=== PATIENT | female | born 1990 | race American Indian/Alaskan Native ===

== ENCOUNTER 2016-08-10 08:32 | Emergency (ER) | payer MEDICAID ==
[2016-08-10 09:08] LABS: Basophils % (Auto) 0.5 % (0.0-1.8); Eosinophils % (Auto) 3.9 % (0.0-4.3); Hematocrit 41.9 % (30.3-42.9); Hemoglobin 13.6 gm/dl (10.1-14.3); Mean Corpuscular HGB Conc 32 % (30-34); Mean Corpuscular Hemoglobin 29 pg (28-32); Mean Corpuscular Volume 91 fl (79-97); Platelet Count 234 K/mm3 (140-440); Red Blood Count 4.63 M/mm3 (3.65-5.03); Red Cell Distribution Width 13.2 % (13.2-15.2); White Blood Count 4.9 K/mm3 (4.5-11.0)
[2016-08-10 09:23] LABS: Alanine Aminotransferase 11 units/L (7-56); Albumin 3.6 g/dL (3.9-5); Albumin/Globulin Ratio 1.2 %; Alkaline Phosphatase 74 units/L (35-129); Anion Gap 15 mmol/L; BUN/Creatinine Ratio 17.14; Bilirubin,Total 0.7 mg/dL (0.1-1.2); Blood Urea Nitrogen 12 mg/dL (7-17); Calcium 8.6 mg/dL (8.4-10.2); Carbon Dioxide 25 mmol/L (22-30); Chloride 102.1 mmol/L (98-107); Glucose 132 mg/dL (65-100); Lipase 20 units/L (13-60); Potassium 4.1 mmol/L (3.6-5.0); Sodium 138 mmol/L (137-145); Total Protein 6.6 g/dL (6.3-8.2)
--- NOTE | 2016-08-10 10:00 | Emergency Department Report ---
Chief Complaint: Abdominal Pain Stated Complaint: ABD PAIN Time Seen by Provider: 08/10/16 09:53 - HPI History of Present Illness: Patient reports abdominal and back pain, rectal pain from straining while trying to have a bowel movement. Also, c/o hemorrhoids. LMP 07/18/2016 - ROS Review of Systems: all other systems are unremarkable except for documentation in HPI - Exam Vital Signs: Vital Signs 08/10/16 08:53 Temperature 99.1 F Pulse Rate 80 Respiratory 18 Rate Blood Pressure 152/108 O2 Sat by Pulse 100 Oximetry Physical Exam: Gen: well developed and nourished, NAD Abd: soft, nondistended, bowel sounds present, tenderness to palpation suprapubic, RLQ & LLQ, no rebound, rigid or guarding Back: full ROM, no rash, paraspinal, vertebrae, CVA rola or muscle spasm MSE screening note: Focused history and physical exam performed. Due to findings the following was ordered: laboratory studies ordered ED Medical Decision Making - Lab Data Result diagrams: 08/10/16 09:00 08/10/16 09:00 ED Disposition for MSE Condition: Stable Instructions: Abdominal Pain (ED)
[2016-08-10 10:36] LABS: Bacteria,Urine 1+ /HPF (Negative); Bilirubin,Urine NEG (Negative); Blood,Urine NEG (Negative); Ketones,Urine NEG (Negative); Leukocyte Esterase,Urine SM (Negative); Mucus,Urine 2+ /HPF; Nitrite,Urine NEG (Negative); Protein,Urine <15 mg/dL mg/dL (Negative); Urobilinogen,Urine < 2.0 mg/dL (<2.0)
--- NOTE | 2016-08-10 14:31 | Emergency Department Report ---
ED Abdominal Pain HPI - General Chief Complaint: Abdominal Pain Stated Complaint: ABD PAIN Time Seen by Provider: 08/10/16 14:29 Source: patient Mode of arrival: Ambulatory Limitations: No Limitations - History of Present Illness Initial Comments: The patient states that she noted bright red blood on her toilet paper yesterday and again today. She has history of hemorrhoids with . She was also had some vague suprapubic and lower back discomfort and perhaps some dysuria. She is a poor historian. She's had no recent fever or chills there's been no nausea vomiting diarrhea or chills. She reports no neurological change. MD Complaint: abdominal pain -: Gradual, days(s) Location: suprapubic Radiation: none (no radiation be some lower back pain) Migration to: no migration Quality: aching Consistency: intermittent, now resolved Improves With: nothing Worsens With: nothing Associated Symptoms: denies other symptoms - Related Data Previous Rx's Medication Instructions Recorded Last Taken Type Sulfamethoxazole/Trimethoprim 1 each PO QDAY #7 tablet 08/10/16 Unknown Rx [Bactrim 400-80 mg] traMADol [Ultram] 50 mg PO Q6HR PRN #10 tablet 08/10/16 Unknown Rx Allergies Allergy/AdvReac Type Severity Reaction Status Date / Time No Known Allergies Allergy Unverified 04/05/14 19:55 ED Review of Systems ROS: Stated complaint: ABD PAIN Other details as noted in HPI Constitutional: denies: chills, fever Eyes: denies: eye pain, eye discharge, vision change ENT: denies: ear pain, throat pain Respiratory: denies: cough, shortness of breath, wheezing Cardiovascular: denies: chest pain, palpitations Endocrine: no symptoms reported Gastrointestinal: abdominal pain. denies: nausea, diarrhea Genitourinary: denies: urgency, dysuria, discharge Musculoskeletal: back pain. denies: joint swelling, arthralgia Skin: denies: rash, lesions Neurological: denies: headache, weakness, paresthesias Psychiatric: denies: anxiety, depression Hematological/Lymphatic: denies: easy bleeding, easy bruising ED Past Medical Hx - Past Medical History Previous Medical History?: Yes Hx Hypertension: Yes Additional medical history: HTN with only, "Infection in digestive tract" - Surgical History Past Surgical History?: Yes Additional Surgical History: x1 - Social History Smoking Status: Current Every Day Smoker - Medications Home Medications: Home Medications Medication Instructions Recorded Confirmed Last Taken Type Sulfamethoxazole/Trimethoprim 1 each PO QDAY #7 tablet 08/10/16 Unknown Rx [Bactrim 400-80 mg] traMADol [Ultram] 50 mg PO Q6HR PRN #10 tablet 08/10/16 Unknown Rx ED Physical Exam - General Limitations: No Limitations General appearance: alert, in no apparent distress - Head Head exam: Present: atraumatic, normocephalic - Eye Eye exam: Present: normal appearance, PERRL, EOMI. Absent: scleral icterus - ENT ENT exam: Present: normal exam, mucous membranes moist - Neck Neck exam: Present: normal inspection. Absent: tenderness, meningismus - Respiratory Respiratory exam: Present: normal lung sounds bilaterally. Absent: respiratory distress - Cardiovascular Cardiovascular Exam: Present: regular rate, normal rhythm. Absent: systolic murmur, diastolic murmur, rubs, gallop - GI/Abdominal GI/Abdominal exam: Present: soft, normal bowel sounds. Absent: distended, tenderness, guarding, rebound, rigid - External exam: Present: other (external hemorrhoids nonthrombosed noted). Absent: bleeding - Extremities Exam Extremities exam: Present: normal inspection - Back Exam Back exam: Present: normal inspection. Absent: CVA tenderness (R), CVA tenderness (L) - Neurological Exam Neurological exam: Present: alert, oriented X3, CN II-XII intact. Absent: motor sensory deficit - Psychiatric Psychiatric exam: Present: normal affect, normal mood - Skin Skin exam: Present: warm, dry, intact, normal color. Absent: rash ED Course Vital Signs 08/10/16 08/10/16 08/10/16 08:53 13:34 14:00 Temperature 99.1 F Pulse Rate 80 Respiratory 18 Rate Blood Pressure 152/108 148/94 O2 Sat by Pulse 100 100 99 Oximetry 08/10/16 15:00 Temperature Pulse Rate Respiratory Rate Blood Pressure 131/78 O2 Sat by Pulse Oximetry - Reevaluation(s) Reevaluation #1: She had no significant pain or bleeding in the emergency department. 08/10/16 15:27 ED Medical Decision Making - Lab Data Result diagrams: 08/10/16 09:00 08/10/16 09:00 Laboratory Results - last 24 hr 08/10/16 08/10/16 08/10/16 09:00 09:00 09:31 WBC 4.9 RBC 4.63 Hgb 13.6 Hct 41.9 MCV 91 MCH 29 MCHC 32 RDW 13.2 Plt Count 234 Lymph % (Auto) 26.9 [place] % (Auto) 7.6 H Eos % (Auto) 3.9 Baso % (Auto) 0.5 Lymph # 1.3 [place] # 0.4 Eos # 0.2 Baso # 0.0 Seg Neutrophils % 61.1 Seg Neutrophils # 3.0 Sodium 138 Potassium 4.1 Chloride 102.1 Carbon Dioxide 25 Anion Gap 15 BUN 12 Creatinine 0.7 Estimated GFR > 60 BUN/Creatinine Ratio 17.14 Glucose 132 H Calcium 8.6 Total Bilirubin 0.7 AST 16 ALT 11 Alkaline Phosphatase 74 Total Protein 6.6 Albumin 3.6 L Albumin/Globulin Ratio 1.2 Lipase 20 HCG, Quant Urine Color Yellow Urine Turbidity Clear Urine pH 6.0 Ur Specific [place] 1.025 Urine Protein <15 mg/dl Urine Glucose (UA) Neg Urine Ketones Neg Urine Blood Neg Urine Nitrite Neg Urine Bilirubin Neg Urine Urobilinogen < 2.0 Ur Leukocyte Esterase Sm Urine WBC (Auto) 11.0 H Urine RBC (Auto) 5.0 U Epithel Cells (Auto) 10.0 Urine Bacteria (Auto) 1+ Urine Mucus 2+ 08/10/16 09:54 WBC RBC Hgb Hct MCV MCH MCHC RDW Plt Count Lymph % (Auto) [place] % (Auto) Eos % (Auto) Baso % (Auto) Lymph # [place] # Eos # Baso # Seg Neutrophils % Seg Neutrophils # Sodium Potassium Chloride Carbon Dioxide Anion Gap BUN Creatinine Estimated GFR BUN/Creatinine Ratio Glucose Calcium Total Bilirubin AST ALT Alkaline Phosphatase Total Protein Albumin Albumin/Globulin Ratio Lipase HCG, Quant < 2 Urine Color Urine Turbidity Urine pH Ur Specific [place] Urine Protein Urine Glucose (UA) Urine Ketones Urine Blood Urine Nitrite Urine Bilirubin Urine Urobilinogen Ur Leukocyte Esterase Urine WBC (Auto) Urine RBC (Auto) U Epithel Cells (Auto) Urine Bacteria (Auto) Urine Mucus Critical care attestation.: If time is entered above; I have spent that time in minutes in the direct care of this critically ill patient, excluding procedure time. ED Disposition Clinical Impression: External hemorrhoids, Rectal bleeding UTI (urinary tract infection) Qualifiers: Urinary tract infection type: site unspecified Hematuria presence: without hematuria Qualified Code(s): N39.0 - Urinary tract infection, site not specified Disposition: DISCHARGED TO HOME OR SELFCARE Is pt being admited?: No Does the pt Need Aspirin: No Condition: Stable Instructions: Abdominal Pain (ED), Hemorrhoids (ED), Urinary Tract Infection in Women (ED) Additional Instructions: Acute change or problem. Rx as directed. Hemorrhoid medicine is available over -the-counter such as Preparation H. With a primary care provider. Prescriptions: Sulfamethoxazole/Trimethoprim [Bactrim 400-80 mg] 1 each PO QDAY #7 tablet traMADol [Ultram] 50 mg PO Q6HR PRN #10 tablet PRN Reason: Pain Referrals: PRIMARY CARE, [Primary Care Provider] - 3-5 Days [facility] [Provider Group] - 3-5 Days
[2016-08-10 15:09] VITALS: BP 131/78
== END 2016-08-10 15:48 | disposition home or self-care (01) ==
LOC: ED 08:32
DX: N39.0 Urinary tract infection, site not specified (principal); K64.4 Residual hemorrhoidal skin tags; K62.5 Hemorrhage of anus and rectum; I10 Essential (primary) hypertension; F17.200 Nicotine dependence, unspecified, uncomplicated
CPT/HCPCS: 36415; 80053; 81001; 83690; 84702; 85025; 87086; 99284

== ENCOUNTER 2017-02-18 11:22 | Emergency (ER) | payer MEDICAID ==
[2017-02-18 12:11] LABS: Eosinophils % (Auto) 3.5 % (0.0-4.3); Hematocrit 41.7 % (30.3-42.9); Hemoglobin 13.9 gm/dl (10.1-14.3); Mean Corpuscular HGB Conc 33 % (30-34); Mean Corpuscular Hemoglobin 30 pg (28-32); Mean Corpuscular Volume 90 fl (79-97); Platelet Count 282 K/mm3 (140-440); Red Blood Count 4.62 M/mm3 (3.65-5.03); Red Cell Distribution Width 13.2 % (13.2-15.2)
[2017-02-18 12:22] LABS: Alanine Aminotransferase 11 units/L (7-56); Albumin 4.2 g/dL (3.9-5); Albumin/Globulin Ratio 1.3 %; Alkaline Phosphatase 61 units/L (35-129); Anion Gap 17 mmol/L; BUN/Creatinine Ratio 21.42; Blood Urea Nitrogen 15 mg/dL (7-17); Carbon Dioxide 26 mmol/L (22-30); Chloride 101.1 mmol/L (98-107); Glucose 83 mg/dL (65-100); Lipase 13 units/L (13-60); Potassium 4.2 mmol/L (3.6-5.0); Sodium 140 mmol/L (137-145); Total Protein 7.5 g/dL (6.3-8.2)
[2017-02-18 12:40] LABS: Bilirubin,Urine NEG (Negative); Blood,Urine NEG (Negative); Ketones,Urine 20 mg/dL (Negative); Leukocyte Esterase,Urine MOD (Negative); Mucus,Urine 3+ /HPF; Nitrite,Urine NEG (Negative)
[2017-02-18 15:26] VITALS: BP 152/95
--- NOTE | 2017-02-18 15:53 | Emergency Department Report ---
HPI - General Chief Complaint: Abdominal Pain Time Seen by Provider: 02/18/17 15:40 - HPI HPI: [address] 26 The patient is a 26-year-old female presenting with a chief complaint of abdominal pain. Patient states for 1 week she has had intermittent pain in the right upper quadrant is sharp and stabbing in nature. Patient does admit to nausea but denies vomiting. Patient has not noticed any change in the pain with meals. Patient does admit pleurisy but denies any recent flights or long car trips. Patient also states for the past 2-3 days she has had white vaginal discharge. Patient currently gives her pain a score of 5/10. Location: [see above] Duration: One week Quality: Sharp and stabbing Severity: 5/10 Modifying factors: [see above] Context: [see above] Mode of transportation: [not driving] ED Past Medical Hx - Past Medical History Hx Hypertension: Yes Additional medical history: HTN with only, "Infection in digestive tract" - Surgical History Additional Surgical History: x1 - Family History Family history: no significant - Social History Smoking Status: Never Smoker Substance Use Type: None (denies illicit drug use) - Medications Home Medications: Home Medications Medication Instructions Recorded Confirmed Last Taken Type Sulfamethoxazole/Trimethoprim 1 each PO QDAY #7 tablet 08/10/16 Unknown Rx [Bactrim 400-80 mg] Sulfamethoxazole/Trimethoprim 1 each PO BID #14 tablet 02/18/17 Unknown Rx [Bactrim DS TAB] traMADol [Ultram 50 MG tab] 50 mg PO Q6HR PRN #10 tablet 02/18/17 Unknown Rx ED Review of Systems ROS: Stated complaint: PAIN ON URINATION/ABD/FEELS DIZZY Other details as noted in HPI Comment: All other systems reviewed and negative Constitutional: denies: chills, fever Eyes: denies: eye pain, eye discharge, vision change ENT: denies: ear pain, throat pain Respiratory: other (pleurisy) Cardiovascular: denies: chest pain, palpitations Endocrine: no symptoms reported Gastrointestinal: abdominal pain, nausea. denies: vomiting Genitourinary: dysuria, discharge Musculoskeletal: denies: back pain, joint swelling, arthralgia Skin: denies: rash, lesions Neurological: denies: headache, weakness, paresthesias Psychiatric: denies: anxiety, depression Hematological/Lymphatic: denies: easy bleeding, easy bruising Physical Exam - Physical Exam Vital Signs: Vital Signs 02/18/17 02/18/17 11:31 15:25 Temperature 98.4 F Pulse Rate 64 99 H Respiratory 18 16 Rate Blood Pressure 158/112 Blood Pressure 152/95 [Left] O2 Sat by Pulse 100 99 Oximetry Physical Exam: GENERAL: The patient is well-developed well-nourished female lying on stretcher not appearing to be in acute distress. [] HEENT: Normocephalic. Atraumatic. Extraocular motions are intact. Patient has moist mucous membranes. NECK: Supple. Trachea midline CHEST/LUNGS: Clear to auscultation. There is no respiratory distress noted. HEART/CARDIOVASCULAR: Regular. There is no tachycardia. There is no gallop rub or murmur. ABDOMEN: Abdomen is soft, with tenderness to palpation in right upper quadrant. There is no rebound or guarding. There is no tenderness to palpation in the epigastric region. Patient has normal bowel sounds. There is no abdominal distention. SKIN: There is no rash. There is no edema. There is no diaphoresis. NEURO: The patient is awake, alert, and oriented. The patient is cooperative. The patient has normal speech MUSCULOSKELETAL: There is no evidence of acute injury. ED Course Vital Signs 02/18/17 02/18/17 11:31 15:25 Temperature 98.4 F Pulse Rate 64 99 H Respiratory 18 16 Rate Blood Pressure 158/112 Blood Pressure 152/95 [Left] O2 Sat by Pulse 100 99 Oximetry ED Medical Decision Making - Lab Data Result diagrams: 02/18/17 11:46 02/18/17 11:46 Laboratory Tests 02/18/17 02/18/17 02/18/17 11:38 11:46 11:46 WBC 3.0 L RBC 4.62 Hgb 13.9 Hct 41.7 MCV 90 MCH 30 MCHC 33 RDW 13.2 Plt Count 282 Lymph % (Auto) 41.0 H [place] % (Auto) 10.6 H Eos % (Auto) 3.5 Baso % (Auto) 1.0 Lymph # 1.2 [place] # 0.3 Eos # 0.1 Baso # 0.0 Seg Neutrophils % 43.9 Seg Neutrophils # 1.3 L D-Dimer Sodium Potassium Chloride Carbon Dioxide Anion Gap BUN Creatinine Estimated GFR BUN/Creatinine Ratio Glucose Calcium Total Bilirubin AST ALT Alkaline Phosphatase Total Protein Albumin Albumin/Globulin Ratio Lipase HCG, Qual Negative Urine Color Yellow Urine Turbidity Slightly-cloudy Urine pH 5.0 Ur Specific [place] 1.031 H Urine Protein 30 mg/dl Urine Glucose (UA) Neg Urine Ketones 20 Urine Blood Neg Urine Nitrite Neg Urine Bilirubin Neg Urine Urobilinogen 2.0 Ur Leukocyte Esterase Mod Urine WBC (Auto) 13.0 H Urine RBC (Auto) 7.0 U Epithel Cells (Auto) 30.0 H Urine Mucus 3+ 02/18/17 02/18/17 11:46 15:58 WBC RBC Hgb Hct MCV MCH MCHC RDW Plt Count Lymph % (Auto) [place] % (Auto) Eos % (Auto) Baso % (Auto) Lymph # [place] # Eos # Baso # Seg Neutrophils % Seg Neutrophils # D-Dimer < 135.00 Sodium 140 Potassium 4.2 Chloride 101.1 Carbon Dioxide 26 Anion Gap 17 BUN 15 Creatinine 0.7 Estimated GFR > 60 BUN/Creatinine Ratio 21.42 Glucose 83 Calcium 9.0 Total Bilirubin 0.70 AST 15 ALT 11 Alkaline Phosphatase 61 Total Protein 7.5 Albumin 4.2 Albumin/Globulin Ratio 1.3 Lipase 13 HCG, Qual Urine Color Urine Turbidity Urine pH Ur Specific [place] Urine Protein Urine Glucose (UA) Urine Ketones Urine Blood Urine Nitrite Urine Bilirubin Urine Urobilinogen Ur Leukocyte Esterase Urine WBC (Auto) Urine RBC (Auto) U Epithel Cells (Auto) Urine Mucus Wet prep reveals moderate Trichomonas. No yeast. Less than 20% cells - Radiology Data Radiology results: report reviewed (CT abdomen and pelvis, right upper quadrant ultrasound), image reviewed (CT abdomen pelvis, right upper quadrant ultrasound) CT abdomen and pelvis (read by radiologist)-no acute intra-abdominal abnormality seen. Appendix is normal Right upper quadrant ultrasound (read by radiologist)-normal examination - Differential Diagnosis symptomatic cholelithiasis, PE, bacterial vaginosis, vaginitis, UTI Critical care attestation.: If time is entered above; I have spent that time in minutes in the direct care of this critically ill patient, excluding procedure time. ED Disposition Clinical Impression: Trichomonas vaginalis (TV) infection, UTI (urinary tract infection) Disposition: TO HOME OR SELFCARE Is pt being admited?: No Does the pt Need Aspirin: No Condition: Stable Instructions: Abdominal Pain (ED), Trichomoniasis (ED) Additional Instructions: Return to the emergency department immediately should you develop worsening symptoms, fever, inability to tolerate food or liquid or any other concerns. Prescriptions: Sulfamethoxazole/Trimethoprim [Bactrim DS TAB] 1 each PO BID #14 tablet traMADol [Ultram 50 MG tab] 50 mg PO Q6HR PRN #10 tablet PRN Reason: Pain Referrals: PRIMARY CARE, [Primary Care Provider] - 3-5 Days DARSHAN BREAUX MD [Staff Physician] - 3-5 Days Time of Disposition: 19:19
[2017-02-18] MEDS ORDERED: TORADOL IM ONE (16:00)
--- NOTE | 2017-02-18 16:41 | Ultrasound Report ---
RIGHT UPPER QUADRANT ULTRASOUND: History: Right upper quadrant pain. The gallbladder is sonolucent with no evidence of stones, polyps or wall thickening. The common duct is normal in caliber. The pancreas, right renal contour, parenchyma and hepatic parenchyma appear normal. IMPRESSION: Normal right upper quadrant ultrasound.
[2017-02-18] MEDS ORDERED: NACL ONE (17:05)
--- NOTE | 2017-02-18 18:14 | Cat Scan Report ---
FINAL REPORT EXAM: CT ABDOMEN PELVIS W CON HISTORY: right-sided abdominal pain TECHNIQUE: Standard enhanced CT of the abdomen and pelvis. Coronal and sagittal reconstruction was also performed. Contrast: 100 mL Omnipaque 300 given IV. PRIORS: None. FINDINGS: Within the abdomen, the liver, spleen, pancreas, gallbladder, adrenal glands, and kidneys are unremarkable. No evidence for retroperitoneal or pelvic lymphadenopathy is seen. The bowel loops have normal caliber. No soft tissue mass, fluid collection, inflammatory change, or free air is seen within the abdomen or pelvis. The appendix is normal. Within the pelvis, the bladder is unremarkable. The uterus is normal. No evidence for mass or lymphadenopathy is seen in the pelvis. Images through the upper abdomen include the lung bases which are expanded and clear. Bony structures show no focal abnormalities and are intact. IMPRESSION: No acute intra-abdominal process noted. The appendix is normal.
[2017-02-18] MEDS ORDERED: XYLOCAINE 1% MPF 5 mL INFILTRATI ONE (19:20)
[2017-02-18] MEDS ORDERED: FLAGYL PO ONE (19:20)
[2017-02-18] MEDS ORDERED: ZITHROMAX PO ONE (19:20)
[2017-02-18] MEDS ORDERED: ROCEPHIN IM ONE (19:20)
== END 2017-02-18 19:47 | disposition home or self-care (01) ==
LOC: ED 11:22
DX: A59.01 Trichomonal vulvovaginitis (principal); N39.0 Urinary tract infection, site not specified; I10 Essential (primary) hypertension
CPT/HCPCS: 36415; 74177; 76705; 80053; 81001; 83690; 84703; 85025; 85379; 87210; 87591; 96372; 99284; J0696; J1885; Q9967

== ENCOUNTER 2019-07-12 11:20 | Emergency (ER) | payer SELFPAY ==
[2019-07-12 11:33] VITALS: BP 166/114
--- NOTE | 2019-07-12 11:42 | Emergency Department Report ---
Chief Complaint: High BP Stated Complaint: HBP Time Seen by Provider: 07/12/19 11:39 - HPI History of Present Illness: 28 yr old female witha PMH of HTN on losartan presents fro elevated BP at home. She denies chest pain, sob, ing[place], blurred vision or any other symptoms States just moved to [facility] needing some - ROS Review of Systems: As noted HPI - Exam Vital Signs: Vital Signs 07/12/19 11:26 Temperature 99.0 F Pulse Rate 68 Respiratory 18 Rate Blood Pressure 166/114 O2 Sat by Pulse 100 Oximetry Physical Exam: GEN:AAO x 3, No acute distress MSE screening note: Focused history and physical exam performed. Due to findings the following was ordered: ED Disposition for MSE Clinical Impression: HBP (high blood pressure), Medication refill Disposition: MED SCREENING EXAM-LEFT Is pt being admited?: No Does the pt Need Aspirin: No Condition: Stable Instructions: Hypertension (ED) Forms: Accompanied Note, Work/School Release Form(ED) Time of Disposition: 11:40
== END 2019-07-12 11:55 | disposition left against medical advice (07) ==
LOC: ED 11:20
DX: I10 Essential (primary) hypertension (principal); Z76.0 Encounter for issue of repeat prescription
CPT/HCPCS: 99281

== ENCOUNTER 2019-07-12 12:45 | Emergency (ER) | payer MEDICAID ==
[2019-07-12 13:54] LABS: Basophils % (Auto) 0.6 % (0.0-1.8); Eosinophils # (Auto) 0.1 K/mm3 (0.0-0.4); Eosinophils % (Auto) 2.5 % (0.0-4.3); Hematocrit 43.6 % (30.3-42.9); Hemoglobin 14.5 gm/dl (10.1-14.3); Lymphocytes # (Auto) 1.6 K/mm3 (1.2-5.4); Mean Corpuscular HGB Conc 33 % (30-34); Mean Corpuscular Volume 94 fl (79-97); Monocytes # (Auto) 0.5 K/mm3 (0.0-0.8); Monocytes % (Auto) 9.5 % (0.0-7.3); Platelet Count 215 K/mm3 (140-440); Red Blood Count 4.63 M/mm3 (3.65-5.03); Red Cell Distribution Width 12.9 % (13.2-15.2)
[2019-07-12] MEDS ORDERED: cloNIDine 0.1 MG TAB PO ONE ×2 (14:27→14:40)
[2019-07-12] MEDS ORDERED: ACETAMINOPHEN 500 MG TAB PO ONE (14:40)
--- NOTE | 2019-07-12 14:47 | XRay Report ---
CHEST 2 VIEWS INDICATION: chest pain. COMPARISON: None FINDINGS: Support devices: None. Heart: Within normal limits. Lungs/pleura: No acute air space or interstitial disease. No pneumothorax. Additional findings: None. IMPRESSION: Normal chest x-ray Signer Name: Unruly Irving Jr, MD Signed: 07/12/2019 2:42 PM Workstation Name: [id number]
--- NOTE | 2019-07-12 14:48 | Emergency Department Report ---
ED General Adult HPI - General Chief complaint: High BP Stated complaint: CHEST PAIN/HBP/HEADACHE Time Seen by Provider: 07/12/19 14:25 Source: patient Mode of arrival: Ambulatory Limitations: No Limitations - History of Present Illness Initial comments: Patient is 28 years old female with history of hypertension. Patient presented to the ER complaining of headache, chest pain for the last few days. Patient stated that she found out her blood pressure is 211/121. Patient stated that she run out of her amlodipine but she is still taking her losartan. Patient denied any weakness, numbness or tingling sensation. No bowel or bladder incontinence. Severity scale (0 -10): 4 - Related Data Home Medications Medication Instructions Recorded Confirmed Last Taken Losartan/Hydrochlorothiazide 1 tab PO QDAY 07/12/19 07/12/19 07/12/19 [Losartan-Hctz 50-12.5 mg Tab] amLODIPine 5 mg PO DAILY 07/12/19 07/12/19 Unknown Allergies Allergy/AdvReac Type Severity Reaction Status Date / Time No Known Allergies Allergy Verified 02/18/17 11:31 ED Review of Systems ROS: Stated complaint: CHEST PAIN/HBP/HEADACHE Other details as noted in HPI Comment: All other systems reviewed and negative Constitutional: denies: chills, fever Respiratory: denies: cough, shortness of breath, SOB with exertion, wheezing Cardiovascular: chest pain. denies: palpitations, dyspnea on exertion Gastrointestinal: denies: abdominal pain, nausea, vomiting, diarrhea, constipation, hematemesis, melena Musculoskeletal: denies: back pain Neurological: headache. denies: weakness, numbness, paresthesias, confusion, abnormal gait ED Past Medical Hx - Past Medical History Hx Hypertension: Yes Additional medical history: HTN with only, "Infection in digestive tract" - Surgical History Additional Surgical History: x1 - Social History Smoking Status: Unknown if ever smoked Substance Use Type: None - Medications Home Medications: Home Medications Medication Instructions Recorded Confirmed Last Taken Type Losartan/Hydrochlorothiazide 1 tab PO QDAY 07/12/19 07/12/19 07/12/19 History [Losartan-Hctz 50-12.5 mg Tab] amLODIPine 5 mg PO DAILY 07/12/19 07/12/19 Unknown History ED Physical Exam - General Limitations: No Limitations General appearance: alert, in no apparent distress - Head Head exam: Present: atraumatic, normocephalic, normal inspection - Eye Eye exam: Present: normal appearance, PERRL - ENT ENT exam: Present: normal exam, normal orophraynx, mucous membranes moist - Neck Neck exam: Present: normal inspection, full ROM. Absent: tenderness, meningismus, lymphadenopathy, thyromegaly - Respiratory Respiratory exam: Present: normal lung sounds bilaterally - Cardiovascular Cardiovascular Exam: Present: regular rate, normal rhythm, normal heart sounds - GI/Abdominal GI/Abdominal exam: Present: soft, normal bowel sounds. Absent: distended, tenderness, guarding, rebound, rigid, organomegaly, mass, bruit, pulsatile mass, hernia - Extremities Exam Extremities exam: Present: normal inspection, full ROM, normal capillary refill. Absent: tenderness, pedal edema, calf tenderness - Back Exam Back exam: Present: normal inspection, full ROM. Absent: tenderness, CVA tenderness (L), muscle spasm, paraspinal tenderness - Neurological Exam Neurological exam: Present: alert, oriented X3, CN II-XII intact, normal gait, reflexes normal. Absent: motor sensory deficit - Psychiatric Psychiatric exam: Present: normal mood - Skin Skin exam: Present: warm, intact, normal color ED Course Vital Signs 07/12/19 07/12/19 07/12/19 12:57 14:20 14:34 Temperature 98.4 F Pulse Rate 65 66 64 Respiratory 18 16 16 Rate Blood Pressure 147/111 Blood Pressure 161/120 169/98 [Left] O2 Sat by Pulse 100 100 100 Oximetry 07/12/19 07/12/19 07/12/19 14:44 15:14 16:06 Temperature Pulse Rate 76 60 60 Respiratory 16 16 Rate Blood Pressure 169/98 Blood Pressure 170/101 158/96 [Left] O2 Sat by Pulse 100 100 Oximetry ED Medical Decision Making - Lab Data Result diagrams: 07/12/19 13:05 07/12/19 13:05 - EKG Data -: EKG Interpreted by Ms EKG shows normal: sinus rhythm Rate: normal - EKG Data Interpretation: no acute changes - Radiology Data Radiology results: report reviewed - Medical Decision Making Patient is 28 years old female with history of hypertension. Patient presented to the ER complaining of headache, chest pain for the last few days. Patient stated that she found out her blood pressure is 211/121. Patient stated that she run out of her amlodipine but she is still taking her losartan. Patient denied any weakness, numbness or tingling sensation. No bowel or bladder incontinence. Patient received clonidine 0.1 mg and Tylenol. Patient stated that her headache and chest pain completely resolved. Patient, blood pressure is 152/96. denied any weakness numbness or tingling sensation. Patient given prescription for amlodipine 5 mg and also given a referral to [facility]. Patient also advised to return to the ER if her symptoms are not improved. Critical care attestation.: If time is entered above; I have spent that time in minutes in the direct care of this critically ill patient, excluding procedure time. ED Disposition Clinical Impression: Malignant hypertension, Headache, Chest pain Disposition: TO HOME OR SELFCARE Is pt being admited?: No Condition: Stable Instructions: Hypertension (ED), Chest Pain (ED) Referrals: [facility] [Provider Group] - 3-5 Days
[2019-07-12 15:07] LABS: BUN/Creatinine Ratio 19; Blood Urea Nitrogen 15 mg/dL (7-17); Calcium 9.4 mg/dL (8.4-10.2); Hemolysis Index 18
[2019-07-12 16:35] VITALS: BP 158/92
== END 2019-07-12 16:36 | disposition home or self-care (01) ==
LOC: ED 12:45
DX: I10 Essential (primary) hypertension (principal); R51 Headache; R07.89 Other chest pain; Z79.899 Other long term (current) drug therapy
CPT/HCPCS: 36415; 71046; 80048; 84703; 85025; 93005; 93010

== ENCOUNTER 2019-11-20 09:54 | Emergency (ER) | payer SELFPAY ==
--- NOTE | 2019-11-20 10:28 | Emergency Department Report ---
ED Abdominal Pain HPI - General Chief Complaint: Abdominal Pain Stated Complaint: ABD PAIN/OFF BALANCE Time Seen by Provider: 11/20/19 10:27 Source: patient Mode of arrival: Ambulatory Limitations: No Limitations - History of Present Illness Initial Comments: Patient is a 29-year-old -[place] female who comes to the ER complaining of suprapubic abdominal pain and nausea. She states that she is currently on her period but she had some irregular spotting and is concerned she might be . She denies dysuria or vaginal discharge. She reports nausea but no vomiting. No back pain. No chills or fever. Has not seen her primary care doc tor. Has taken nothing at home prior to arrival. Patient is on no home medications. She is supposed to be on blood pressure medications but is been off for years. She did not think she had a problem with her blood pressure. It was noted to be elevated today in triage. MD Complaint: abdominal pain -: Gradual, days(s) Location: suprapubic Migration to: no migration Quality: cramping Consistency: constant Improves With: nothing Worsens With: nothing Associated Symptoms: denies other symptoms, nausea. denies: vomiting, diarrhea, fever, chills, constipation, dysuria, hematemesis, hematochezia, melena, hematuria, anorexia, syncope - Related Data Home Medications Medication Instructions Recorded Confirmed Last Taken Losartan/Hydrochlorothiazide 1 tab PO QDAY 07/12/19 07/12/19 07/12/19 [Losartan-Hctz 50-12.5 mg Tab] amLODIPine 5 mg PO DAILY 07/12/19 07/12/19 Unknown Previous Rx's Medication Instructions Recorded Last Taken Type amLODIPine 5 mg PO DAILY #30 tab 07/12/19 Unknown Rx Nitrofurantoin Kleberg/M-Cryst 100 mg PO Q12HR #10 capsule 11/20/19 Unknown Rx [Macrobid CAP] Allergies Allergy/AdvReac Type Severity Reaction Status Date / Time No Known Allergies Allergy Verified 02/18/17 11:31 ED Review of Systems ROS: Stated complaint: ABD PAIN/OFF BALANCE Other details as noted in HPI Comment: All other systems reviewed and negative ED Past Medical Hx - Past Medical History Previous Medical History?: Yes Hx Hypertension: Yes Additional medical history: HTN with only, "Infection in digestive tract" - Surgical History Past Surgical History?: Yes Additional Surgical History: x1 - Family History Family history: no significant - Social History Smoking Status: Never Smoker Substance Use Type: None - Medications Home Medications: Home Medications Medication Instructions Recorded Confirmed Last Taken Type Losartan/Hydrochlorothiazide 1 tab PO QDAY 07/12/19 07/12/19 07/12/19 History [Losartan-Hctz 50-12.5 mg Tab] amLODIPine 5 mg PO DAILY 07/12/19 07/12/19 Unknown History amLODIPine 5 mg PO DAILY #30 tab 07/12/19 Unknown Rx Nitrofurantoin Kleberg/M-Cryst 100 mg PO Q12HR #10 capsule 11/20/19 Unknown Rx [Macrobid CAP] ED Physical Exam - General Limitations: No Limitations General appearance: alert, in no apparent distress - Head Head exam: Present: atraumatic, normocephalic - Eye Eye exam: Present: normal appearance - ENT ENT exam: Present: mucous membranes moist - Neck Neck exam: Present: normal inspection - Respiratory Respiratory exam: Present: normal lung sounds bilaterally. Absent: respiratory distress - Cardiovascular Cardiovascular Exam: Present: regular rate, normal rhythm. Absent: systolic murmur, diastolic murmur, rubs, gallop - GI/Abdominal GI/Abdominal exam: Present: soft, normal bowel sounds - Extremities Exam Extremities exam: Present: normal inspection - Back Exam Back exam: Present: normal inspection - Neurological Exam Neurological exam: Present: alert, oriented X3 - Psychiatric Psychiatric exam: Present: normal affect, normal mood - Skin Skin exam: Present: warm, dry, intact, normal color. Absent: rash ED Course Vital Signs 11/20/19 11/20/19 11/20/19 10:06 12:16 12:22 Temperature 98.6 F 98.3 F Pulse Rate 69 79 Respiratory 16 18 18 Rate Blood Pressure 183/106 165/103 [Right] O2 Sat by Pulse 99 100 Oximetry 11/20/19 12:31 Temperature Pulse Rate Respiratory 18 Rate Blood Pressure [Right] O2 Sat by Pulse Oximetry ED Medical Decision Making - Lab Data Result diagrams: 11/20/19 10:25 11/20/19 10:25 - Medical Decision Making Labs 11/20/19 11/20/19 11/20/19 10:25 10:25 10:25 WBC 5.5 RBC 4.60 Hgb 14.7 H Hct 43.0 H MCV 94 MCH 32 MCHC 34 RDW 13.0 L Plt Count 244 Lymph % (Auto) 21.0 Kleberg % (Auto) 7.5 H Eos % (Auto) 1.6 Baso % (Auto) 0.7 Lymph # 1.1 L Kleberg # 0.4 Eos # 0.1 Baso # 0.0 Seg Neutrophils % 69.2 Seg Neutrophils # 3.8 Sodium 138 Potassium 4.7 Chloride 102.3 Carbon Dioxide 21 L Anion Gap 19 BUN 15 Creatinine 0.9 Estimated GFR > 60 BUN/Creatinine Ratio 17 Glucose 108 H Calcium 9.4 Total Bilirubin 0.80 AST 19 ALT 20 Alkaline Phosphatase 93 Total Protein 8.0 Albumin 4.4 Albumin/Globulin Ratio 1.2 Lipase 16 HCG, Qual Negative Urine Color Urine Turbidity Urine pH Ur Specific [place] Urine Protein Urine Glucose (UA) Urine Ketones Urine Blood Urine Nitrite Urine Bilirubin Urine Urobilinogen Ur Leukocyte Esterase Urine WBC (Auto) Urine RBC (Auto) U Epithel Cells (Auto) Urine Bacteria (Auto) Urine Mucus 11/20/19 11:00 WBC RBC Hgb Hct MCV MCH MCHC RDW Plt Count Lymph % (Auto) Kleberg % (Auto) Eos % (Auto) Baso % (Auto) Lymph # Kleberg # Eos # Baso # Seg Neutrophils % Seg Neutrophils # Sodium Potassium Chloride Carbon Dioxide Anion Gap BUN Creatinine Estimated GFR BUN/Creatinine Ratio Glucose Calcium Total Bilirubin AST ALT Alkaline Phosphatase Total Protein Albumin Albumin/Globulin Ratio Lipase HCG, Qual Urine Color Yellow Urine Turbidity Clear Urine pH 5.0 Ur Specific [place] 1.015 Urine Protein <15 mg/dl Urine Glucose (UA) Neg Urine Ketones Neg Urine Blood Sm Urine Nitrite Neg Urine Bilirubin Neg Urine Urobilinogen < 2.0 Ur Leukocyte Esterase Tr Urine WBC (Auto) 2.0 Urine RBC (Auto) 2.0 U Epithel Cells (Auto) 2.0 Urine Bacteria (Auto) 1+ Urine Mucus Few Vital Signs 11/20/19 10:06 Temperature 98.6 F Pulse Rate 69 Respiratory 16 Rate Blood Pressure 183/106 [Right] O2 Sat by Pulse 99 Oximetry Labs noted. UA noted. Given trace leuks will treat patient for UTI. She has been medicated for pain. Patient has been educated about her blood pressure. She adds that at one time she was treated for high blood pressure but has been off her medications for some time. She denies seeing a primary care doctor who is told her this is a problem. She denies headache. Denies chest pain. Denies shortness of breath. Patient has been educated on hypertension and diet. She has been instructed to monitor her blood pressure and has been given referral to primary care for follow-up. I have explained to her that if she consistently has a high blood pressure she is going to need medications to prevent stroke or heart disease. Patient being discharged home with follow-up. - Differential Diagnosis Rule out , UTI Critical care attestation.: If time is entered above; I have spent that time in minutes in the direct care of this critically ill patient, excluding procedure time. ED Disposition Clinical Impression: Abdominal pain, UTI (urinary tract infection), Elevated blood pressure reading Disposition: TO HOME OR SELFCARE Is pt being admited?: No Does the pt Need Aspirin: No Condition: Stable Instructions: Urinary Tract Infection in Women (ED), Hypertension (ED) Additional Instructions: STAY WELL HYDRATED WITH WATER MEDS ORDERED TODAY FOLLOW UP WITH PCP REFERRAL BELOW DIET AND ACTIVITY TOLERATED MOTRIN OR TYLENOL FOR PAIN MONITOR YOUR BLOOD PRESSURE IT IS TOO HIGH AND IF REMAINS HIGH ON RECHECK YOU WILL NEED TO GO BACK ON YOUR MEDICATIONS SEE PCP BELOW FOR FOLLOW UP LOW SALT DIET AND LOW FAT DIET EXERCISE DAILY Prescriptions: Nitrofurantoin Kleberg/M-Cryst [Macrobid CAP] 100 mg PO Q12HR #10 capsule Referrals: PRIMARY MD JITENDRA [Primary Care Provider] - 3-5 Days DENICE CORRIGAN MD [Staff Physician] - 3-5 Days Time of Disposition: 12:01
[2019-11-20 11:18] LABS: Basophils % (Auto) 0.7 % (0.0-1.8); Eosinophils # (Auto) 0.1 K/mm3 (0.0-0.4); Eosinophils % (Auto) 1.6 % (0.0-4.3); Hemoglobin 14.7 gm/dl (10.1-14.3); Lymphocytes # (Auto) 1.1 K/mm3 (1.2-5.4); Mean Corpuscular HGB Conc 34 % (30-34); Mean Corpuscular Volume 94 fl (79-97); Monocytes # (Auto) 0.4 K/mm3 (0.0-0.8); Monocytes % (Auto) 7.5 % (0.0-7.3); Platelet Count 244 K/mm3 (140-440)
[2019-11-20 11:41] LABS: Alanine Aminotransferase 20 units/L (7-56); Albumin 4.4 g/dL (3.9-5); BUN/Creatinine Ratio 17; Blood Urea Nitrogen 15 mg/dL (7-17); Calcium 9.4 mg/dL (8.4-10.2); Hemolysis Index 22
[2019-11-20 11:42] LABS: Bacteria,Urine 1+ /HPF (Negative); Bilirubin,Urine NEG (Negative); Blood,Urine SM (Negative); Color,Urine Yellow (Yellow); Mucus,Urine FEW /HPF; Protein,Urine <15 mg/dL mg/dL (Negative); Urobilinogen,Urine < 2.0 mg/dL (<2.0)
[2019-11-20] MEDS ORDERED: NITROFURANTOIN MONOHYD/M-CRYST 100 MG CAP PO ONE (12:06)
[2019-11-20] MEDS ORDERED: IBUPROFEN 800 MG TAB PO ONE (12:06)
[2019-11-20] MEDS ORDERED: ONDANSETRON 4 MG ODT TAB PO ONE (12:07)
[2019-11-20 12:19] VITALS: BP 165/103
== END 2019-11-20 12:32 | disposition home or self-care (01) ==
LOC: ED 09:54
DX: N39.0 Urinary tract infection, site not specified (principal); R03.0 Elevated blood-pressure reading, without diagnosis of hypertension; I10 Essential (primary) hypertension; Z79.899 Other long term (current) drug therapy; Z98.890 Other specified postprocedural states
CPT/HCPCS: 36415; 80053; 81001; 83690; 84703; 85025; 99283; Q0162

== ENCOUNTER 2020-03-23 10:21 | Emergency (ER) | payer OTHER ==
[2020-03-23] MEDS ORDERED: METOCLOPRAMIDE 10 MG/2 ML INJ IV ONE (11:17)
[2020-03-23] MEDS ORDERED: diphenhydrAMINE 50 MG/ML VIAL IV ONE (11:17)
[2020-03-23] MEDS ORDERED: SODIUM CHLORIDE 0.9% 1000 ML 1,000 ML IV ONE (11:17)
[2020-03-23] MEDS ORDERED: KETOROLAC 30 MG/1 ML INJ IV ONE (11:17)
[2020-03-23] MEDS ORDERED: LOSARTAN 50 MG TAB PO ONE (11:34)
--- NOTE | 2020-03-23 11:43 | Emergency Department Report ---
ED Headache HPI - General Chief Complaint: Headache Stated Complaint: HEADACHE/NUMB LEGS Time Seen by Provider: 03/23/20 11:06 - History of Present Illness Initial Comments: Patient is a 29-year-old female presents emergency room with complaints of a headache that began 4 days ago. She states that it is present in her bilateral temples and across her forehead. She states that she has associated nausea, photophobia, sensitivity to light. She denies any vomiting, diarrhea, fever, vision changes, weakness. Patient states that she has a history of frequent headaches but has not seen anyone for it. She states that she has been taking Excedrin Migraine and BC powder without much relief. She states that she is also been having pain in her [place] that radiates to her foot and occasionally she feels a tingling sensation but mostly a throbbing pain. She denies any leg swelling or calf pain. She denies any fall or injury. She states that she is on her feet all day at work and walks up stairs often. Allergies/Adverse Reactions: Allergies No Known Allergies Allergy (Verified 02/18/17 11:31) Home Medications: Ambulatory Orders Losartan/Hydrochlorothiazide [Losartan-Hctz 50-12.5 mg Tab] 1 tab PO QDAY 07/12/19 amLODIPine 5 mg PO DAILY 07/12/19 amLODIPine 5 mg PO DAILY #30 tab 07/12/19 Nitrofurantoin Bulloch/M-Cryst [Macrobid CAP] 100 mg PO Q12HR #10 capsule 11/20/19 Naproxen [EC-Naproxen] 500 mg PO BID PRN #14 tablet. 03/23/20 SUMAtriptan SUCCINATE [Imitrex] 25 mg PO Q4HR PRN #12 tablet 03/23/20 ED Review of Systems ROS: Stated complaint: HEADACHE/NUMB LEGS Other details as noted in HPI Comment: All other systems reviewed and negative ED Past Medical Hx - Past Medical History Previous Medical History?: Yes Hx Hypertension: Yes Additional medical history: HTN with only, "Infection in digestive tract" - Surgical History Past Surgical History?: Yes Additional Surgical History: x1 - Social History Smoking Status: Never Smoker - Medications Home Medications: Home Medications Medication Instructions Recorded Confirmed Last Taken Type Losartan/Hydrochlorothiazide 1 tab PO QDAY 07/12/19 07/12/19 07/12/19 History [Losartan-Hctz 50-12.5 mg Tab] amLODIPine 5 mg PO DAILY 07/12/19 07/12/19 Unknown History amLODIPine 5 mg PO DAILY #30 tab 07/12/19 Unknown Rx Nitrofurantoin Bulloch/M-Cryst 100 mg PO Q12HR #10 capsule 11/20/19 Unknown Rx [Macrobid CAP] Naproxen [EC-Naproxen] 500 mg PO BID PRN #14 tablet.dr 03/23/20 Unknown Rx SUMAtriptan SUCCINATE [Imitrex] 25 mg PO Q4HR PRN #12 tablet 03/23/20 Unknown Rx ED Physical Exam - General Limitations: No Limitations General appearance: alert, in no apparent distress - Head Head exam: Present: atraumatic, normocephalic - Eye Eye exam: Present: normal appearance, PERRL, EOMI. Absent: conjunctival injection, periorbital swelling, periorbital tenderness Pupils: Present: normal accommodation - ENT ENT exam: Present: mucous membranes moist - Respiratory Respiratory exam: Present: normal lung sounds bilaterally. Absent: respiratory distress, wheezes, rales, rhonchi, stridor, chest wall tenderness, accessory muscle use, decreased breath sounds, prolonged expiratory - Cardiovascular Cardiovascular Exam: Present: regular rate, normal rhythm, normal heart sounds. Absent: systolic murmur, diastolic murmur, rubs, gallop - Extremities Exam Extremities exam: Present: full ROM, normal capillary refill, other (ttp over the left anterior [place] over the anterior tibialis muscle, neurovascularly intact ). Absent: pedal edema, joint swelling, calf tenderness - Neurological Exam Neurological exam: Present: alert, oriented X3, CN II-XII intact, normal gait. Absent: motor sensory deficit - Psychiatric Psychiatric exam: Present: normal affect, normal mood - Skin Skin exam: Present: warm, dry, intact ED Course Vital Signs 03/23/20 03/23/20 03/23/20 10:26 11:49 14:00 Temperature 98.3 F 98.3 F Pulse Rate 65 62 Respiratory 20 20 18 Rate Blood Pressure 162/110 Blood Pressure 156/92 [Left] O2 Sat by Pulse 99 99 Oximetry ED Medical Decision Making - Medical Decision Making Patient is a 29-year-old female presents emergency room with complaints of a headache that began 4 days ago. She states that it is present in her bilateral temples and across her forehead. She states that she has associated nausea, photophobia, sensitivity to light. She denies any vomiting, diarrhea, fever, vision changes, weakness. Patient states that she has a history of frequent headaches but has not seen anyone for it. She states that she has been taking Excedrin Migraine and BC powder without much relief. She states that she is also been having pain in her [place] that radiates to her foot and occasionally she feels a tingling sensation but mostly a throbbing pain. She denies any leg swelling or calf pain. She denies any fall or injury. She states that she is on her feet all day at work and walks up stairs often. initial vitals with elevated BP likely secondary to pt not taking her BP medication today. pt given her losartan, BP improved. she has no focal neuro deficits on exam. on exam: ttp over the left anterior [place] over the anterior tibialis muscle, examination appears consistent with anterior [place] splints, no clinical signs of DVT, she is neurovascularly intact, no calf ttp. pt given 1L IVF, reglan, benadryl, and toradol and symptoms completely improved and headache resolved and she was feeling much better and ready to go home. pt given prescription for imitrex and naproxen. advised pt Please take medication as prescribed as needed. Please follow-up with a primary care doctor for reexamination and to discuss your symptoms. Return to emergency room for any new or worsening symptoms. - Differential Diagnosis migraine, cluster WALKER, tension WALKER, sinusitis, HTN headache Critical care attestation.: If time is entered above; I have spent that time in minutes in the direct care of this critically ill patient, excluding procedure time. ED Disposition Clinical Impression: Anterior [place] splints Headache Qualifiers: Headache type: unspecified Headache chronicity pattern: acute headache Intractability: not intractable Qualified Code(s): R51 - Headache Disposition: DC-01 TO HOME OR SELFCARE Is pt being admited?: No Does the pt Need Aspirin: No Condition: Stable Instructions: Muscle Strain (ED), Migraine Headache (ED) Additional Instructions: Please take medication as prescribed as needed. Please follow-up with a primary care doctor for reexamination and to discuss your symptoms. Return to emergency room for any new or worsening symptoms. Prescriptions: Naproxen [EC-Naproxen] 500 mg PO BID PRN #14 tablet. PRTsering Reason: [place] pain SUMAtriptan SUCCINATE [Imitrex] 25 mg PO Q4HR PRN #12 tablet PRN Reason: Headache Referrals: CORI BORJAS MD [Primary Care Provider] - 2-3 Days DENICE CORRIGAN MD [Staff Physician] - 2-3 Days [facility] [Provider Group] - 2-3 Days Time of Disposition: 13:15 Print Language: [place] CITIZEN
[2020-03-23 18:25] VITALS: BP 156/92
== END 2020-03-23 14:00 | disposition home or self-care (01) ==
LOC: ED 10:21
DX: M76.811 Anterior tibial syndrome, right leg (principal); R51 Headache; I10 Essential (primary) hypertension; Z79.899 Other long term (current) drug therapy
CPT/HCPCS: 96361; 96374; 96375; 99282; J1200; J1885; J2765; J7030

== ENCOUNTER 2020-12-19 12:21 | Emergency (ER) | payer OTHER ==
--- NOTE | 2020-12-19 14:18 | Emergency Department Report ---
ED Chest Pain HPI - General Chief Complaint: Chest Pain Stated Complaint: CHEST PAIN Time Seen by Provider: 12/19/20 13:44 Source: patient Mode of arrival: Ambulatory Limitations: No Limitations - History of Present Illness Initial Comments: Patient is a 30-year-old female presents emergency with points of left-sided chest pain that began just prior to arrival. She states that her pain is worse with palpation and worse with movement. She states is also worse with lifting her left arm. She denies any fall or injury. She denies any heavy lifting. She denies any fever, nausea, vomiting, diarrhea, shortness of breath, leg swelling. Past medical history of hypertension. She states that she takes lisinopril. No allergies to medications. She is a non-smoker, nondrinker, denies drug use. She denies any recent travel, recent surgery, hormone use. She denies any family cardiac history. - Related Data Home Medications Medication Instructions Recorded Confirmed Last Taken Losartan/Hydrochlorothiazide 1 tab PO QDAY 07/12/19 07/12/19 07/12/19 [Losartan-Hctz 50-12.5 mg Tab] amLODIPine 5 mg PO DAILY 07/12/19 07/12/19 Unknown Previous Rx's Medication Instructions Recorded Last Taken Type amLODIPine 5 mg PO DAILY #30 tab 07/12/19 Unknown Rx Nitrofurantoin [place]/M-Cryst 100 mg PO Q12HR #10 capsule 11/20/19 Unknown Rx [Macrobid CAP] Naproxen [EC-Naproxen] 500 mg PO BID PRN #14 tablet. 03/23/20 Unknown Rx SUMAtriptan SUCCINATE [Imitrex] 25 mg PO Q4HR PRN #12 tablet 03/23/20 Unknown Rx Menthol/Camphor [Kyle Pearson 1 applicatio TP BID #18 oint...g. 12/19/20 Unknown Rx Ointment] Naproxen 375 mg PO BID PRN #20 tablet. 12/19/20 Unknown Rx methOCARBAMOL [Robaxin TAB] 500 mg PO BID PRN #14 tab 12/19/20 Unknown Rx Allergies Allergy/AdvReac Type Severity Reaction Status Date / Time No Known Allergies Allergy Verified 02/18/17 11:31 Heart Score - HEART Score History: Slightly suspicious EKG: Normal Age: < 45 Risk factors: 1-2 risk factors Troponin: < normal limit HEART Score: 1 - EKG Read Time Time EKG Completed: 00:00 (on EKG) EKG Read Time: 00:00 (on EKG ) ED Review of Systems ROS: Stated complaint: CHEST PAIN Other details as noted in HPI Comment: All other systems reviewed and negative ED Past Medical Hx - Past Medical History Previous Medical History?: Yes Hx Hypertension: Yes Additional medical history: HTN with only, "Infection in digestive tract" - Surgical History Past Surgical History?: Yes Additional Surgical History: x1 - Social History Smoking Status: Never Smoker - Medications Home Medications: Home Medications Medication Instructions Recorded Confirmed Last Taken Type Losartan/Hydrochlorothiazide 1 tab PO QDAY 07/12/19 07/12/19 07/12/19 History [Losartan-Hctz 50-12.5 mg Tab] amLODIPine 5 mg PO DAILY 07/12/19 07/12/19 Unknown History amLODIPine 5 mg PO DAILY #30 tab 07/12/19 Unknown Rx Nitrofurantoin [place]/M-Cryst 100 mg PO Q12HR #10 capsule 11/20/19 Unknown Rx [Macrobid CAP] Naproxen [EC-Naproxen] 500 mg PO BID PRN #14 tablet. 03/23/20 Unknown Rx SUMAtriptan SUCCINATE [Imitrex] 25 mg PO Q4HR PRN #12 tablet 03/23/20 Unknown Rx Menthol/Camphor [Kyle Pearson 1 applicatio TP BID #18 oint...g. 12/19/20 Unknown Rx Ointment] Naproxen 375 mg PO BID PRN #20 tablet. 12/19/20 Unknown Rx methOCARBAMOL [Robaxin TAB] 500 mg PO BID PRN #14 tab 12/19/20 Unknown Rx ED Physical Exam - General Limitations: No Limitations General appearance: alert, in no apparent distress - Head Head exam: Present: atraumatic, normocephalic - Eye Eye exam: Present: normal appearance - ENT ENT exam: Present: mucous membranes moist - Respiratory Respiratory exam: Present: normal lung sounds bilaterally, chest wall tenderness (reproducible left anterior chest wall ttp and pain in the chest wall with movement of the arm, no crepitus, no deformity, no edema, no skin changes ). Absent: respiratory distress, wheezes, rales, rhonchi, stridor, accessory muscle use, decreased breath sounds, prolonged expiratory - Cardiovascular Cardiovascular Exam: Present: regular rate, normal rhythm, normal heart sounds. Absent: systolic murmur, diastolic murmur, rubs, gallop - Neurological Exam Neurological exam: Present: alert, oriented X3 - Psychiatric Psychiatric exam: Present: normal affect, normal mood - Skin Skin exam: Present: warm, dry, intact ED Course Vital Signs 12/19/20 12/19/20 12:31 15:19 Temperature 98.3 F Pulse Rate 65 64 Respiratory 18 17 Rate Blood Pressure 163/105 144/94 [Right] O2 Sat by Pulse 99 100 Oximetry AMBROSIO score - Ambrosio Score Age > 65: (0) No Aspirin use within the Past 7 Days: (0) No 3 or more CAD Risk Factors: (0) No 2 or more Angina events in past 24 hrs: (0) No Known CAD with more than 50% Stenosis: (0) No Elevated Cardiac Markers: (0) No ST Deviation Greater than 0.5mm: (0) No AMBROSIO Score: 0 ED Medical Decision Making - Lab Data Result diagrams: 12/19/20 14:08 12/19/20 14:08 Lab Results 12/19/20 12/19/20 12/19/20 Range/Units 14:08 14:08 14:08 WBC 4.4 L (4.5-11.0) K/mm3 RBC 4.58 (3.65-5.03) M/mm3 Hgb 14.3 (10.1-14.3) gm/dl Hct 42.3 (30.3-42.9) % MCV 92 (79-97) fl MCH 31 (28-32) pg MCHC 34 (30-34) % RDW 13.4 (13.2-15.2) % Plt Count 288 (140-440) K/mm3 Lymph % (Auto) 39.8 H (13.4-35.0) % [place] % (Auto) 10.1 H (0.0-7.3) % Eos % (Auto) 1.8 (0.0-4.3) % Baso % (Auto) 0.4 (0.0-1.8) % Lymph # (Auto) 1.8 (1.2-5.4) K/mm3 [place] # (Auto) 0.4 (0.0-0.8) K/mm3 Eos # (Auto) 0.1 (0.0-0.4) K/mm3 Baso # (Auto) 0.0 (0.0-0.1) K/mm3 Seg Neutrophils % 47.9 (40.0-70.0) % Seg Neutrophils # 2.1 (1.8-7.7) K/mm3 Sodium 136 L (137-145) mmol/L Potassium 4.7 (3.6-5.0) mmol/L Chloride 99.5 (98-107) mmol/L Carbon Dioxide 27 (22-30) mmol/L Anion Gap 14 mmol/L BUN 11 (7-17) mg/dL Creatinine 0.7 (0.6-1.2) mg/dL Estimated GFR > 60 ml/min BUN/Creatinine Ratio 16 % Glucose 82 (65-100) mg/dL Calcium 9.1 (8.4-10.2) mg/dL Total Bilirubin 0.60 (0.1-1.2) mg/dL AST 23 (5-40) units/L ALT 22 (7-56) units/L Alkaline Phosphatase 90 (35-129) units/L Troponin T < 0.010 (0.00-0.029) ng/mL Total Protein 8.1 (6.3-8.2) g/dL Albumin 4.4 (3.9-5) g/dL Albumin/Globulin Ratio 1.2 % HCG, Qual Negative (Negative) Vital Signs 12/19/20 12/19/20 12:31 15:19 Temperature 98.3 F Pulse Rate 65 64 Respiratory 18 17 Rate Blood Pressure 163/105 144/94 [Right] O2 Sat by Pulse 99 100 Oximetry - EKG Data EKG shows normal: sinus rhythm, axis, intervals, QRS complexes, ST-T waves Rate: normal - Radiology Data Radiology results: report reviewed Ordering Physician: DEMARCO EWING Date of Service: 12/19/20 Procedure(s): XR chest routine 2V Accession Number(s): [id number] cc: DEMARCO EWING Fluoro Time In Minutes: XR chest routine 2V INDICATION / CLINICAL INFORMATION: CP. COMPARISON: None available. FINDINGS: SUPPORT DEVICES: None. HEART /PULMONARY VASCULATURE: No significant abnormality. LUNGS / PLEURA: No significant pulmonary or pleural abnormality. No pneumothorax. ADDITIONAL FINDINGS: No significant additional findings. IMPRESSION: 1. No acute findings. Signer Name: John Keller MD Signed: 12/19/2020 2:53 PM Workstation Name: [id number] Transcribed By: BUTCH Dictated By: JOHN KELLER MD Electronically Authenticated By: JOHN KELLER MD Signed Date/Time: 12/19/201452 DD/ 51 TD/TT: Print - Medical Decision Making Patient is a 30-year-old female presents emergency with points of left-sided chest pain that began just prior to arrival. She states that her pain is worse with palpation and worse with movement. She states is also worse with lifting her left arm. She denies any fall or injury. She denies any heavy lifting. She denies any fever, nausea, vomiting, diarrhea, shortness of breath, leg swelling. Past medical history of hypertension. She states that she takes lisinopril. No allergies to medications. She is a non-smoker, nondrinker, denies drug use. She denies any recent travel, recent surgery, hormone use. She denies any family cardiac history. Initial vitals with elevated blood pressure which improved upon repeat without intervention. On exam:reproducible left anterior chest wall ttp and pain in the chest wall with movement of the arm, no crepitus, no deformity, no edema, no skin changes . Labs are normal. Troponin is negative. EKG is within normal limits. Chest x-ray with no acute process. Heart score is 1, low risk for cardiac event. AMBROSIO score 0. Symptoms and examination are most consistent with costochondritis. PERC criteria negative for PE, PE unlikely. Patient given prescriptions. Advised patient Please use medication as prescribed. Do not drive or operate machinery while taking muscle relaxer Robaxin. May use ice pack, heating pad, rest, epsom salt bath. Follow-up with your primary care doctor for reexamination. Return to emergency room immediately for any new or worsening symptoms. Critical care attestation.: If time is entered above; I have spent that time in minutes in the direct care of this critically ill patient, excluding procedure time. ED Disposition Clinical Impression: Chest pain Qualifiers: Chest pain type: unspecified Qualified Code(s): R07.9 - Chest pain, unspecified Disposition: DC-01 TO HOME OR SELFCARE Is pt being admited?: No Does the pt Need Aspirin: No Condition: Stable Instructions: Nonspecific Chest Pain, Adult, [id number], Costochondritis Additional Instructions: Please use medication as prescribed. Do not drive or operate machinery while taking muscle relaxer Robaxin. May use ice pack, heating pad, rest, epsom salt bath. Follow-up with your primary care doctor for reexamination. Return to emergency room immediately for any new or worsening symptoms. Prescriptions: Naproxen 375 mg PO BID PRN #20 tablet.dr PRN Reason: pain methOCARBAMOL [Robaxin TAB] 500 mg PO BID PRN #14 tab PRN Reason: muscle spasm/pain Menthol/Camphor [Kyle Pearson Ointment] 1 applicatio TP BID #18 oint...g. Referrals: DENICE CORRIGAN MD [Staff Physician] - 2-3 Days [facility] [Provider Group] - 2-3 Days Time of Disposition: 15:09 Print Language: SLOVAK
[2020-12-19 14:40] LABS: Alanine Aminotransferase 22 units/L (7-56); Albumin 4.4 g/dL (3.9-5); Blood Urea Nitrogen 11 mg/dL (7-17); Calcium 9.1 mg/dL (8.4-10.2); Hemolysis Index 8
[2020-12-19 14:46] LABS: Basophils % (Auto) 0.4 % (0.0-1.8); Eosinophils # (Auto) 0.1 K/mm3 (0.0-0.4); Eosinophils % (Auto) 1.8 % (0.0-4.3); Hematocrit 42.3 % (30.3-42.9); Hemoglobin 14.3 gm/dl (10.1-14.3); Lymphocytes # (Auto) 1.8 K/mm3 (1.2-5.4); Lymphocytes % (Auto) 39.8 % (13.4-35.0); Mean Corpuscular HGB Conc 34 % (30-34); Mean Corpuscular Volume 92 fl (79-97); Monocytes # (Auto) 0.4 K/mm3 (0.0-0.8); Monocytes % (Auto) 10.1 % (0.0-7.3); Platelet Count 288 K/mm3 (140-440); Red Blood Count 4.58 M/mm3 (3.65-5.03); Red Cell Distribution Width 13.4 % (13.2-15.2)
[2020-12-19 14:54] LABS: BUN/Creatinine Ratio 16
--- NOTE | 2020-12-19 14:57 | XRay Report ---
XR chest routine 2V INDICATION / CLINICAL INFORMATION: CP. COMPARISON: None available. FINDINGS: SUPPORT DEVICES: None. HEART /PULMONARY VASCULATURE: No significant abnormality. LUNGS / PLEURA: No significant pulmonary or pleural abnormality. No pneumothorax. ADDITIONAL FINDINGS: No significant additional findings. IMPRESSION: 1. No acute findings. Signer Name: Frandy Roe MD Signed: 12/19/2020 2:53 PM Workstation Name: [id number]
[2020-12-19 15:20] VITALS: BP 144/94
--- NOTE | 2020-12-23 11:35 | Electrocardiograph Report ---
[facility] Test Date: 2020-12-19 Test Time: 12:33:56 Pat Name: ARTHUR CAMPOS Department: Room: Gender: F [employer] Supervisor: PAULO : 1990 Requested By: EZIO ZEPEDA Order Number: [id number] Reading MD: Reuben Sexton Measurements Intervals [place] Rate: 62 P: 56 MT: 154 QRS: 41 QRSD: 82 T: 17 QT: 396 QTc: 404 Interpretive Statements Sinus rhythm,WNL No previous ECG available for comparison Electronically Signed On 12-23-2020 11:34:57 EDT by Reuben Sexton
== END 2020-12-19 15:24 | disposition home or self-care (01) ==
LOC: ED 12:21
DX: R07.89 Other chest pain (principal); M79.602 Pain in left arm; I10 Essential (primary) hypertension; Z98.890 Other specified postprocedural states; Z79.899 Other long term (current) drug therapy
CPT/HCPCS: 36415; 71046; 80053; 84484; 84703; 85025; 93005

== ENCOUNTER 2022-01-04 00:17 | Emergency (ER) | payer OTHER ==
[2022-01-04 00:37] VITALS: BP 159/107
[2022-01-04 02:00] LABS: Bilirubin,Urine NEG (Negative); Blood,Urine NEG (Negative); Color,Urine Yellow (Yellow); Protein,Urine <15 mg/dL mg/dL (Negative); Urobilinogen,Urine < 2.0 mg/dL (<2.0)
[2022-01-04 02:54] LABS: RBC,Urine < 1.0 /HPF (0.0-6.0); WBC,Urine < 1.0 /HPF (0.0-6.0)
[2022-01-04 04:27] LABS: HCG Qualitative,Urine Negative (Negative)
[2022-01-04] MEDS ORDERED: FLUCONAZOLE 200 MG TAB PO ONE (05:12)
--- NOTE | 2022-01-04 05:34 | Emergency Department Report ---
ED Female HPI - General Chief complaint: Urogenital-Female Stated complaint: VAGINAL DISCOMFORT/DISCHARGE Source: patient Mode of arrival: Ambulatory Limitations: No Limitations - History of Present Illness Initial comments: Patient is a 31-year-old -[place] female with no past medical history who presents to the ED with complaint of acute onset persistent vaginal itching and vaginal irritation with vaginal discharge for the last 3 days. Patient states that she suspect she may be having a yeast infection but would like to be evaluated for the same. Patient denies dysuria, urinary frequency and urgency, low back pain, abdominal pain, nausea and vomiting, fever, chills, dyspareunia or diarrhea. MD Complaint: vaginal discharge, other (vaginal irritation) -: Sudden, days(s) (3) Location: labia, other (vaginal) Radiation: non-radiating Quality: sharp, burning, aching Consistency: constant Improves with: none Worsens with: none Are you Now?: No Associated Symptoms: denies other symptoms, vaginal discharge, other (vaginal irritation). denies: vaginal bleeding, abdominal pain, nausea/vomiting, feve r/chills, headaches, loss of appetite, dysuria, hematuria, shortness of breath, syncope, weakness - Related Data Sexually active: Yes Home Medications Medication Instructions Recorded Confirmed Last Taken Losartan/Hydrochlorothiazide 1 tab PO QDAY 07/12/19 07/12/19 07/12/19 [Losartan-Hctz 50-12.5 mg Tab] amLODIPine 5 mg PO DAILY 07/12/19 07/12/19 Unknown Previous Rx's Medication Instructions Recorded Last Taken Type amLODIPine 5 mg PO DAILY #30 tab 07/12/19 Unknown Rx Nitrofurantoin [place]/M-Cryst 100 mg PO Q12HR #10 capsule 11/20/19 Unknown Rx [Macrobid CAP] Naproxen [EC-Naproxen] 500 mg PO BID PRN #14 tablet. 03/23/20 Unknown Rx SUMAtriptan SUCCINATE [Imitrex] 25 mg PO Q4HR PRN #12 tablet 03/23/20 Unknown Rx Menthol/Camphor [[place] Speculator 1 applicatio TP BID #18 oint...g. 12/19/20 Unknown Rx Ointment] Naproxen 375 mg PO BID PRN #20 tablet. 05/20/21 Unknown Rx methOCARBAMOL [Robaxin TAB] 500 mg PO BID PRN #14 tab 12/19/20 Unknown Rx Fluconazole [Diflucan TAB] 200 mg PO QDAY #1 tablet 01/04/22 Unknown Rx Ibuprofen [Motrin] 800 mg PO Q8HR PRN #24 tablet 01/04/22 Unknown Rx metroNIDAZOLE [Flagyl] 500 mg PO Q12HR 7 Days #14 tab 01/04/22 Unknown Rx Allergies Allergy/AdvReac Type Severity Reaction Status Date / Time No Known Allergies Allergy Verified 02/18/17 11:31 ED Review of Systems ROS: Stated complaint: VAGINAL DISCOMFORT/DISCHARGE Other details as noted in HPI Constitutional: denies: chills, fever Eyes: denies: eye pain, eye discharge, vision change ENT: denies: ear pain, throat pain Respiratory: denies: cough, shortness of breath, wheezing Cardiovascular: denies: chest pain, palpitations Endocrine: no symptoms reported Gastrointestinal: denies: abdominal pain, nausea, diarrhea Genitourinary: discharge, other (vaginal irritation). denies: urgency, dysuria Musculoskeletal: denies: back pain, joint swelling, arthralgia Skin: denies: rash, lesions Neurological: denies: headache, weakness, paresthesias Psychiatric: denies: anxiety, depression Hematological/Lymphatic: denies: easy bleeding, easy bruising ED Past Medical Hx - Past Medical History Hx Hypertension: Yes Additional medical history: HTN with only, "Infection in digestive tract" - Surgical History Additional Surgical History: x1 - Social History Smoking Status: Never Smoker - Medications Home Medications: Home Medications Medication Instructions Recorded Confirmed Last Taken Type Losartan/Hydrochlorothiazide 1 tab PO QDAY 07/12/19 07/12/19 07/12/19 History [Losartan-Hctz 50-12.5 mg Tab] amLODIPine 5 mg PO DAILY 07/12/19 07/12/19 Unknown History amLODIPine 5 mg PO DAILY #30 tab 07/12/19 Unknown Rx Nitrofurantoin [place]/M-Cryst 100 mg PO Q12HR #10 capsule 11/20/19 Unknown Rx [Macrobid CAP] Naproxen [EC-Naproxen] 500 mg PO BID PRN #14 tablet 03/23/20 Unknown Rx SUMAtriptan SUCCINATE [Imitrex] 25 mg PO Q4HR PRN #12 tablet 03/23/20 Unknown Rx Menthol/Camphor [[place] Speculator 1 applicatio TP BID #18 oint...g. 12/19/20 Unknown Rx Ointment] Naproxen 375 mg PO BID PRN #20 tablet.dr 12/19/20 Unknown Rx methOCARBAMOL [Robaxin TAB] 500 mg PO BID PRN #14 tab 12/19/20 Unknown Rx Fluconazole [Diflucan TAB] 200 mg PO QDAY #1 tablet 01/04/22 Unknown Rx Ibuprofen [Motrin] 800 mg PO Q8HR PRN #24 tablet 01/04/22 Unknown Rx metroNIDAZOLE [Flagyl] 500 mg PO Q12HR 7 Days #14 tab 01/04/22 Unknown Rx ED Physical Exam - General Limitations: No Limitations General appearance: alert, in no apparent distress - Head Head exam: Present: atraumatic, normocephalic, normal inspection - Eye Eye exam: Present: normal appearance, PERRL, EOMI Pupils: Present: normal accommodation - ENT ENT exam: Present: normal exam, normal orophraynx, mucous membranes moist, TM's normal bilaterally, normal external ear exam - Neck Neck exam: Present: normal inspection, full ROM. Absent: tenderness - Respiratory Respiratory exam: Present: normal lung sounds bilaterally. Absent: respiratory distress, wheezes, rales, rhonchi, chest wall tenderness, accessory muscle use, decreased breath sounds, prolonged expiratory - Cardiovascular Cardiovascular Exam: Present: regular rate, normal rhythm, normal heart sounds. Absent: systolic murmur, diastolic murmur, rubs, gallop - GI/Abdominal GI/Abdominal exam: Present: soft, normal bowel sounds. Absent: tenderness, guarding, rigid, hyperactive bowel sounds, hypoactive bowel sounds, organomegaly, mass - Bi-manual exam: Present: other (Pelvic exam deferred at this time patient preferred to self swab) - Extremities Exam Extremities exam: Present: normal inspection, full ROM, normal capillary refill. Absent: tenderness - Back Exam Back exam: Present: normal inspection, full ROM. Absent: tenderness, CVA tenderness (L), muscle spasm, paraspinal tenderness, vertebral tenderness - Neurological Exam Neurological exam: Present: alert, oriented X3, CN II-XII intact, normal gait, reflexes normal - Psychiatric Psychiatric exam: Present: normal affect, normal mood - Skin Skin exam: Present: warm, dry, intact, normal color. Absent: rash ED Course Vital Signs 01/04/22 00:31 Temperature 97.6 F Pulse Rate 67 Respiratory 18 Rate Blood Pressure 159/107 ED Medical Decision Making - Medical Decision Making This is a 31-year-old -[place] female with no past medical history who presents to the ED with complaint of acute onset persistent vaginal itching and vaginal irritation with vaginal discharge for the last 3 days. Patient states that she suspect she may be having a yeast infection but would like to be ev aluated for the same. In the ED, patient is alert and oriented x3 and is not in any distress. Urinalysis is unremarkable. Wet prep test was positive for Gardnerella vaginalis consistent with bacterial vaginosis. Patient will discharge home on medications and advised to follow-up with her primary care physician in 7 to 10 days for reevaluation or return to the ED immediately if symptoms get worse. - Differential Diagnosis Bacterial vaginosis; Franchesca vaginitis; UTI; STD Critical care attestation.: If time is entered above; I have spent that time in minutes in the direct care of this critically ill patient, excluding procedure time. ED Disposition Clinical Impression: Franc[place]a vaginitis, Vaginal discharge, Vaginal irritation, Bacterial vaginosis Disposition: 01 HOME / SELF CARE / HOMELESS Is pt being admited?: No Does the pt Need Aspirin: No Condition: Stable Instructions: Vaginitis, [id number], Vaginal Yeast Infection, Adult, Bacterial Vaginosis (ED), Bacterial Vaginosis, [id number] Additional Instructions: All lab test results were reviewed and are all nonactionable. Wet prep test was positive for Gardnerella vaginalis consistent with bacterial vaginosis. Therefore take medication with food, drink plenty of fluids, follow-up with your primary care physician in 7 to 10 days for reevaluation. Return to the ED immediately if symptoms get worse Prescriptions: Fluconazole [Diflucan TAB] 200 mg PO QDAY #1 tablet metroNIDAZOLE [Flagyl] 500 mg PO Q12HR 7 Days #14 tab Ibuprofen [Motrin] 800 mg PO Q8HR PRN #24 tablet PRN Reason: Pain , Severe (7-10) Referrals: DENICE CORRIGAN MD [Primary Care Provider] - 3-5 Days Forms: STI Treatment and Prevention Time of Disposition: 05:34 Print Language: GHANAIAN
== END 2022-01-04 06:11 | disposition home or self-care (01) ==
LOC: ED 00:17
DX: B37.3 Candidiasis of vulva and vagina (principal); N76.0 Acute vaginitis; B96.89 Other specified bacterial agents as the cause of diseases classified elsewhere; I10 Essential (primary) hypertension; Z98.890 Other specified postprocedural states
CPT/HCPCS: 81001; 81025; 87210; 99283